=== PATIENT | female | born 1950 | race Caucasian/White ===

== ENCOUNTER 2016-12-19 05:51 | Inpatient (IN) ==
[2016-12-19] MEDS ORDERED: Ipratropium/Albuterol Neb 3 ML IH ONE ×2 (06:00→06:41)
--- NOTE | 2016-12-19 06:04 | Emergency Department Note ---
Disposition Clinical Impression: COPD exacerbation, Hypoxia, Elevated troponin Disposition: Still a Patient Condition: Good Referrals: NO,PCP [Primary Care Provider] - Forms: ED Satisfaction Letter SOB HPI - General Chief Complaint: ED Shortness of Breath/Dyspnea Stated Complaint: edwina Time Seen by Provider: 12/19/16 05:56 Source: patient Limitations: no limitations Nursing Notes Reviewed: Yes Vital Signs Reviewed: Yes - History of Present Illness 66-year-old female with a history of rheumatoid arthritis on Humira presents the emergency department with a chief complaint of shortness of breath. She had some shortness of breath last night but it worsened overnight. She is a long-time smoker but never been diagnosed with COPD formally. She has had episodes like this in the past but never as bad. Denies history of DVT/PE. Denies lower extremity swelling or calf pain. Denies recent illness. No fevers or chills. Denies any chest pain but complains her chest feels tight from her breathing. No productive sputum. No lightheadedness or syncope. No numbness or weakness in her extremities. - Related Data Home Medications Medication Instructions Recorded Confirmed Adalimumab [Humira] 40 mg SQ Q2W 08/21/16 10/02/16 Atenolol [Tenormin] 50 mg PO BID 08/21/16 10/02/16 Cholecalciferol (D-3) [Vitamin D] 2,000 unit PO DAILY 08/21/16 10/02/16 CloNIDine HCl [Kapvay] 0.1 mg PO BID 08/21/16 10/02/16 Lisinopril [Zestril] 20 mg PO BID 08/21/16 10/02/16 Metformin [Glucophage] 500 mg PO 0800 08/21/16 10/02/16 [place]-3 Fatty Acids/Fish Oil [Fish 1 each PO DAILY 08/21/16 10/02/[address] 1,000 mg Softgel] Triamterene/HCTZ 37.5/25mg 0.5 tab PO DAILY 08/21/16 10/02/16 [Dyazide] Previous Rx's Medication Instructions Recorded Folic Acid 1 mg PO DAILY #90 tablet 08/22/16 Azithromycin [Azithromycin 6-Tab 250 mg PO PER PKG DI #6 tab 10/02/16 Pack] Ferrous Sulfate [Iron] 325 mg PO BID #60 tablet 10/02/16 Allergies Allergy/AdvReac Type Severity Reaction Status Date / Time Penicillins Allergy Rash Verified 08/21/16 11:18 All systems ED: reviewed and negative except as stated. Constitutional: Denies: fever Cardiovascular: Reports: dyspnea on exertion. Denies: chest pain Respiratory: Reports: cough, dyspnea Gastrointestinal: Denies: abdominal pain, nausea, vomiting Musculoskeletal: Denies: back pain, neck pain Neurological: Denies: headache, weakness, numbness Past Medical History - Past Medical History Medical history: Reports: diabetes, hypertension, other - Social History Smoking Status: Current every day smoker Smokeless Tobacco Status: No Alcohol use: Reports: none Drug use: Reports: none Physical Exam General: She is sitting up in bed with some respiratory distress, talking in short sentences Cardiovascular: Regular rhythm but tachycardic S1, S2. No murmurs, rubs or gallops. Respiratory: Diminished breath sounds bilaterally with scant expiratory wheezing. Moderate respiratory distress breathing around 30 times a minute Abdomen: Soft, nontender. No guarding, rebound or rigidity. Eyes: conjunctiva clear HENT: Normocephalic, no signs of head injury. No oral mucosal lesions. Moist mucous membranes Neuro: Stands and ambulates independently. No facial asymmetry. Musculoskeletal: There is no redness, swelling, edema, tenderness, asymmetry, pain along the venous system or any other sign of DVT. Skin: No lesions. No diaphoresis. Normal turgor. Normal color Psych: Appropriate - General Limitations: no limitations General appearance: alert, in no apparent distress Course Course Narrative: Presents to the emergency department with new onset dyspnea. She has had these episodes in the past but never this bad. She was initially hypoxic but quickly responded to nasal cannula. She is very anxious and has air hunger. We brought the BiPAP and the patient would not tolerate it. Her oxygen saturation is maintaining without it. She was immediately given multiple breathing treatments we did give a small 0.5 mg dose of Ativan due to her significant anxiety. She is maintaining her oxygenation at this time. She is awake and alert. - Reevaluation(s) Reevaluation #1: After breathing treatments and Ativan patient much more relaxed, oxygenation stable, she is now talking in full sentences. Her EKG did so some ST depression and she has a mildly elevated troponin 0.08. She is having no chest pain or pressure. I assume this is troponin leak from her tachycardia. Patient being signed out to Dr. Taylor, pending the results of the rest of her labs and chest x-ray. Patient will likely be admitted for COPD exacerbation and elevated troponin Vital Signs Temperature 97.6 F 12/19/16 05:53 Pulse Rate 134 12/19/16 05:53 Respiratory Rate 24 12/19/16 05:53 Blood Pressure 173/136 12/19/16 05:53 O2 Sat by Pulse Oximetry 92 L 12/19/16 05:53 Temperature 97.6 F 12/19/16 05:53 Pulse Rate 123 12/19/16 06:14 Respiratory Rate 36 12/19/16 06:14 Blood Pressure 144/132 12/19/16 06:14 O2 Sat by Pulse Oximetry 89 L 12/19/16 06:14 Oxygen Delivery Oxygen Delivery Nasal Cannula Shortness of Breath/Dyspnea - Lab Data Result diagrams: 12/19/16 06:08 12/19/16 06:08 Lab Results 12/19/16 12/19/16 12/19/16 Range/Units 06:08 06:08 06:08 WBC 17.4 H (4.3-11.1) K/mcL RBC 3.15 L (3.82-4.97) M/mcL Hgb 9.2 L (11.5-15.4) g/dL Hct 30.6 L (35.3-44.9) % MCV 97.1 (83.0-100.0) fL MCH 29.2 (28.0-33.3) pg MCHC 30.1 L (31.6-35.5) g/dL RDW 16.8 H (11.5-14.5) % Plt Count 410 H (140-400) K/mcL MPV 9.7 (9.4-12.4) fL Immature Gran % 0.6 (0-4) % Seg Neutrophils % 59.4 % Lymphocytes % 33.0 % Monocytes % 4.1 % Eosinophils % 2.6 % Basophils % 0.3 % Neutrophils # 10.3 H (1.6-8.9) K/mcL Lymphocytes # 5.7 H (0.6-4.6) K/mcL Monocytes # 0.7 (0.0-1.3) K/mcL Eosinophils # 0.5 (0.0-0.6) K/mcL Basophils # 0.1 (0.0-0.2) K/mcL Sodium 134 L (136-145) mEq/L Potassium 5.2 H (3.5-4.5) mEq/L Chloride 105 (98-109) mEq/L Carbon Dioxide 17 L (19-29) mEq/L BUN 38 H (7-20) mg/dL Creatinine 2.01 H (0.57-1.11) mg/dL Est GFR ( Amer) 30 L (> 60) Est GFR (Non-Af Amer) 25 L (> 60) BUN/Creatinine Ratio 19 (6-26) Glucose 297 H (70-99) mg/dL Calculated Osmolality 298 (280-300) Calcium 9.7 (8.6-10.8) mg/dL Troponin I 0.08 H* (0-0.03) ng/mL B-Natriuretic Peptide (0-100) pg/mL 12/19/16 Range/Units 06:08 WBC (4.3-11.1) K/mcL RBC (3.82-4.97) M/mcL Hgb (11.5-15.4) g/dL Hct (35.3-44.9) % MCV (83.0-100.0) fL MCH (28.0-33.3) pg MCHC (31.6-35.5) g/dL RDW (11.5-14.5) % Plt Count (140-400) K/mcL MPV (9.4-12.4) fL Immature Gran % (0-4) % Seg Neutrophils % % Lymphocytes % % Monocytes % % Eosinophils % % Basophils % % Neutrophils # (1.6-8.9) K/mcL Lymphocytes # (0.6-4.6) K/mcL Monocytes # (0.0-1.3) K/mcL Eosinophils # (0.0-0.6) K/mcL Basophils # (0.0-0.2) K/mcL Sodium (136-145) mEq/L Potassium (3.5-4.5) mEq/L Chloride (98-109) mEq/L Carbon Dioxide (19-29) mEq/L BUN (7-20) mg/dL Creatinine (0.57-1.11) mg/dL Est GFR ( Amer) (> 60) Est GFR (Non-Af Amer) (> 60) BUN/Creatinine Ratio (6-26) Glucose (70-99) mg/dL Calculated Osmolality (280-300) Calcium (8.6-10.8) mg/dL Troponin I (0-0.03) ng/mL B-Natriuretic Peptide 2482 H (0-100) pg/mL - EKG Data EKG results narrative: EKG shows sinus tachycardia with a rate of 128 bpm. There are some ST depressions in lead V5 and V6. AR, QRS, QT within normal limits. Normal axis. Normal R-wave progression. Previous EKG shows similar wave morphology without as exaggerated ST changes in V5 and V6 Attestation Statement - Attestation Attestation: I, Surinder Zepeda MD, personally performed a history and physical exam of the patient and discussed their management with the resident. I reviewed the resident's note and agree with the documented findings, medical decision making , and plan of care. 66-year-old female presents to the emergency department with a complaint of increasing shortness of breath which started last evening and got much worse during the night. There has been some increased cough with some clear sputum production. No fever. No chest pain. Patient is a smoker and continues to smoke. She is not on home oxygen and does not use nebulizers at home. On examination patient is a well-developed elderly female in mild to moderate respiratory distress. She is alert and oriented 3. There is no cyanosis or diaphoresis. Breath sounds are markedly decreased bilaterally with a few scattered expiratory wheezes. Heart tachycardic and regular. Abdomen is soft and nontender with normal bowel sounds. Labs reviewed. Troponin 0.08. BNP 2482. WBC 17.4. EKG shows a sinus tachycardia with a heart rate of [address] segment depression. At shift change and patient is being signed out to the oncoming dayshift team, Dr. Looney and Dr. John.
[2016-12-19 06:18] LABS: Basophils # 0.1 K/mcL (0.0-0.2); Basophils % 0.3 %; Eosinophils # 0.5 K/mcL (0.0-0.6); Eosinophils % 2.6 %; Hematocrit 30.6 % (35.3-44.9); Hemoglobin 9.2 g/dL (11.5-15.4); Immature Granulocytes % 0.6 % (0-4); Lymphocytes # 5.7 K/mcL (0.6-4.6); Mean Corpuscular HGB Conc 30.1 g/dL (31.6-35.5); Mean Corpuscular Hemoglobin 29.2 pg (28.0-33.3); Mean Corpuscular Volume 97.1 fL (83.0-100.0); Mean Platelet Volume 9.7 fL (9.4-12.4); Monocytes # 0.7 K/mcL (0.0-1.3); Monocytes % 4.1 %; Neutrophils # 10.3 K/mcL (1.6-8.9); Platelet Count 410 K/mcL (140-400); Red Blood Count 3.15 M/mcL (3.82-4.97); Red Cell Distribution Width 16.8 % (11.5-14.5); Segmented Neutrophils % 59.4 %
[2016-12-19] MEDS ORDERED: *HR* LORazepam 2 MG/ML VIAL IVP ONE (06:18)
[2016-12-19 06:32] LABS: Calcium 9.7 mg/dL (8.6-10.8); Potassium 5.2 mEq/L (3.5-4.5)
[2016-12-19] MEDS ORDERED: *HR* Heparin 5,000 UNIT/ML VIAL SQ SCH (07:00)
--- NOTE | 2016-12-19 07:41 | Emergency Department Note ---
Disposition Clinical Impression: Hypoxia, Elevated troponin, Pulmonary vascular congestion, Elevated serum creatinine Disposition: Admitted As Inpatient Condition: Fair SOB HPI - General Chief Complaint: ED Shortness of Breath/Dyspnea Stated Complaint: edwina Time Seen by Provider: 12/19/16 05:56 Source: patient Limitations: no limitations Nursing Notes Reviewed: Yes Vital Signs Reviewed: Yes - Related Data Home Medications Medication Instructions Recorded Confirmed Adalimumab [Humira] 40 mg SQ Q2W 08/21/16 10/02/16 Atenolol [Tenormin] 50 mg PO BID 08/21/16 10/02/16 Cholecalciferol (D-3) [Vitamin D] 2,000 unit PO DAILY 08/21/16 10/02/16 CloNIDine HCl [Kapvay] 0.1 mg PO BID 08/21/16 10/02/16 Lisinopril [Zestril] 20 mg PO BID 08/21/16 10/02/16 Metformin [Glucophage] 500 mg PO 0800 08/21/16 10/02/16 [place]-3 Fatty Acids/Fish Oil [Fish 1 each PO DAILY 08/21/16 10/02/[address] 1,000 mg Softgel] Triamterene/HCTZ 37.5/25mg 0.5 tab PO DAILY 08/21/16 10/02/16 [Dyazide] Previous Rx's Medication Instructions Recorded Folic Acid 1 mg PO DAILY #90 tablet 08/22/16 Azithromycin [Azithromycin 6-Tab 250 mg PO PER PKG DI #6 tab 10/02/16 Pack] Ferrous Sulfate [Iron] 325 mg PO BID #60 tablet 10/02/16 Allergies Allergy/AdvReac Type Severity Reaction Status Date / Time Penicillins Allergy Rash Verified 08/21/16 11:18 Constitutional: Denies: fever Cardiovascular: Reports: dyspnea on exertion. Denies: chest pain Respiratory: Reports: cough, dyspnea Gastrointestinal: Denies: abdominal pain, nausea, vomiting Musculoskeletal: Denies: back pain, neck pain Neurological: Denies: headache, weakness, numbness Past Medical History - Past Medical History Medical history: Reports: diabetes, hypertension, other - Social History Smoking Status: Current every day smoker Smokeless Tobacco Status: No Alcohol use: Reports: none Drug use: Reports: none Physical Exam - General Limitations: no limitations General appearance: alert, in no apparent distress Course Course Narrative: Introduced myself to the patient. Received signout from shift supervisor melting resident. Reports shortness of breath that woke her from sleep. No formal diagnosis of COPD however she does have a long-standing history of cigarette smoking. She is tachycardic here. She was initially hypoxic on presentation. Her EKG shows sinus tach with ST depressions in lead V5 and V6. Chest x-ray looks like she has some vascular congestion. BNP is 2400. This case was discussed with the hospitalist and they requested d-dimer. Patient to be admitted for further management. Vital Signs Temperature 97.6 F 12/19/16 05:53 Pulse Rate 134 12/19/16 05:53 Respiratory Rate 24 12/19/16 05:53 Blood Pressure 173/136 12/19/16 05:53 O2 Sat by Pulse Oximetry 92 L 12/19/16 05:53 Temperature 97.6 F 12/19/16 05:53 Pulse Rate 109 12/19/16 07:02 Respiratory Rate 26 12/19/16 07:02 Blood Pressure 157/106 12/19/16 07:02 O2 Sat by Pulse Oximetry 91 L 12/19/16 07:10 Oxygen Delivery Oxygen Delivery Aerosol Mask Shortness of Breath/Dyspnea - MDM Narrative Medical decision making narrative: 66-year-old female presents to the ER with a chief complaint of shortness of breath. She is tachycardic and hypoxic on presentation. She is satting well now on supplemental O2 via nasal cannula. Her chest x-ray looks like she has some interstitial edema. Her EKG is sinus tach with some depression in the lateral leads. Troponin is 0.08. Discussed this case with the hospitalist. Requests to add on a d-dimer. We will admit to the hospital for further management. I examined this patient and my medical decision-making was reviewed with the CHARGING MANIPULATOR/PA/Advanced Practice Nurse/Resident Physician. I agree with the documented findings, disposition and treatment plan as described except to the extent set forth below. Patient was signed out from the evening ER doc Dr. Zepeda, was seen by Dr. Correa and myself today, agree with his evaluation management plan, supervised patient study. There is waiting for admission to the hospitalist service which with the hospitalist service and patient she agrees to be admitted. Impression is acute exacerbation of COPD, and CHF. With elevated troponin. - Lab Data Lab results reviewed: Yes I reviewed the patient's lab results. Result diagrams: 12/19/16 06:08 12/19/16 06:08 Lab Results 12/19/16 12/19/16 12/19/16 Range/Units 06:08 06:08 06:08 WBC 17.4 H (4.3-11.1) K/mcL RBC 3.15 L (3.82-4.97) M/mcL Hgb 9.2 L (11.5-15.4) g/dL Hct 30.6 L (35.3-44.9) % MCV 97.1 (83.0-100.0) fL MCH 29.2 (28.0-33.3) pg MCHC 30.1 L (31.6-35.5) g/dL RDW 16.8 H (11.5-14.5) % Plt Count 410 H (140-400) K/mcL MPV 9.7 (9.4-12.4) fL Immature Gran % 0.6 (0-4) % Seg Neutrophils % 59.4 % Lymphocytes % 33.0 % Monocytes % 4.1 % Eosinophils % 2.6 % Basophils % 0.3 % Neutrophils # 10.3 H (1.6-8.9) K/mcL Lymphocytes # 5.7 H (0.6-4.6) K/mcL Monocytes # 0.7 (0.0-1.3) K/mcL Eosinophils # 0.5 (0.0-0.6) K/mcL Basophils # 0.1 (0.0-0.2) K/mcL Sodium 134 L (136-145) mEq/L Potassium 5.2 H (3.5-4.5) mEq/L Chloride 105 (98-109) mEq/L Carbon Dioxide 17 L (19-29) mEq/L BUN 38 H (7-20) mg/dL Creatinine 2.01 H (0.57-1.11) mg/dL Est GFR ( Amer) 30 L (> 60) Est GFR (Non-Af Amer) 25 L (> 60) BUN/Creatinine Ratio 19 (6-26) Glucose 297 H (70-99) mg/dL Calculated Osmolality 298 (280-300) Calcium 9.7 (8.6-10.8) mg/dL Troponin I 0.08 H* (0-0.03) ng/mL B-Natriuretic Peptide (0-100) pg/mL 12/19/16 Range/Units 06:08 WBC (4.3-11.1) K/mcL RBC (3.82-4.97) M/mcL Hgb (11.5-15.4) g/dL Hct (35.3-44.9) % MCV (83.0-100.0) fL MCH (28.0-33.3) pg MCHC (31.6-35.5) g/dL RDW (11.5-14.5) % Plt Count (140-400) K/mcL MPV (9.4-12.4) fL Immature Gran % (0-4) % Seg Neutrophils % % Lymphocytes % % Monocytes % % Eosinophils % % Basophils % % Neutrophils # (1.6-8.9) K/mcL Lymphocytes # (0.6-4.6) K/mcL Monocytes # (0.0-1.3) K/mcL Eosinophils # (0.0-0.6) K/mcL Basophils # (0.0-0.2) K/mcL Sodium (136-145) mEq/L Potassium (3.5-4.5) mEq/L Chloride (98-109) mEq/L Carbon Dioxide (19-29) mEq/L BUN (7-20) mg/dL Creatinine (0.57-1.11) mg/dL Est GFR ( Amer) (> 60) Est GFR (Non-Af Amer) (> 60) BUN/Creatinine Ratio (6-26) Glucose (70-99) mg/dL Calculated Osmolality (280-300) Calcium (8.6-10.8) mg/dL Troponin I (0-0.03) ng/mL B-Natriuretic Peptide 2482 H (0-100) pg/mL - Radiology Data Radiology results reviewed: Yes I reviewed the patient's radiology results. Chest X-Ray 12/19/16 06:01 IMPRESSION: 1. Diffuse interstitial opacities bilaterally most likely representing edema. Interstitial pneumonia could appear similar. 2. At least trace bilateral effusions. 3. Bibasilar atelectasis. D/ / Neil Lobo MD / Neil Lobo MD Interpreting Provider: Neil Lobo MD
[2016-12-19] MEDS ORDERED: *HR* Morphine 2 MG/ML SYRINGE IVP PRN (08:15)
[2016-12-19] MEDS ORDERED: Naloxone 0.4 MG/ML INJ IVP PRN (08:15)
[2016-12-19] MEDS ORDERED: Adalimumab [Humira] 40 MG SQ SCH (08:30)
[2016-12-19] MEDS ORDERED: Furosemide 40 MG/4 ML VIAL IVP ONE (08:32)
--- NOTE | 2016-12-19 08:37 | Internal Med History&Physical ---
Date of Encounter: 12/19/16 Time of Encounter: 08:26 Assessment and Plan (1) COPD exacerbation Current visit: Yes Status: Acute COPD exacerbation: COPD exacarbation : Precipitated likely secondary to multifactorial etiology. she has ongoing respiratory symptoms and noted that possible underlying infection. plan - Admit as inpatient. - Blood culture - IV levofloxacin 750 mg q24 h - IV Solumedrol 40 mg q8h. - BDAs. - IN oxygen 2 L - Keep SpO2 around 90% - will check troponin (2) Elevated troponin Current visit: Yes Status: Acute Elevated troponin: Etiology: Multifactorial: Elevated creatinine, persistent tachycardia, stress secondary to COPD exacerbation Plan: -We will continue serial troponin. -Patient has a EKG changes. -We will get cardiology on the board for further evaluation. -I have spoken to cardiology (3) Elevated serum creatinine Current visit: Yes Status: Acute Likely secondary to dehydration. Will give IV fluids for now. (4) Hypoxia Current visit: Yes Status: Acute Likely secondary to COPD. (5) DVT prophylaxis Current visit: Yes Status: Acute Heparin Medical decision making: Patient is a [id number] risk of worsening respiratory failure in spite of being on appropriate treatment Internal Medicine - H&P: HPI Chief complaint: GEOFF Admitted From: Emergency Dept Plans for Post Hospital Care: Home History of present illness: PCP : Used to be Hilary Augustin. Brief PMH: RA on treatment with biologics from [facility]. Her most records are at the same facility. HTN, COPD, Smoker History of present illness: Patient was complaining of chest tightness along with cough and expectoration 2 weeks back. Patient was started on antibiotics and she felt better. Her symptoms started for this admission 12 hours back. Patient was complaining of shortness of breath, chest tightness, palpitations. Patient denies chest pain and she is able to lay down flat. Patient was at home when she tried home remedies overnight but it did not help and that is the reason she came to the emergency room. Course in the emergency room. Basic labs were done along with the exception of the chest which showed vascular congestion. EKG shows ST depression. Troponin is elevated. Along with that creatinine is elevated too. Reason for admission: Possible COPD exacerbation along with dehydration which is responsible for cardiac stress: Non-ST elevation myocardial infarction. I have examined this patient in the emergency room. Has spoke to cardiology for further evaluation. Family history: Noncontributory Past Med Surg Social Fam HX - Past Medical History Medical history: diabetes, hypertension, other - Social History Smoking Status: Current every day smoker Smokeless Tobacco Status: No Alcohol use: none Drug use: none Internal Medicine - H&P: Meds Adalimumab [Humira] 40 mg SQ Q2W 08/21/16 [History] Atenolol [Tenormin] 50 mg PO BID 08/21/16 [History] Cholecalciferol (D-3) [Vitamin D] 2,000 unit PO DAILY 08/21/16 [History] CloNIDine HCl [Kapvay] 0.1 mg PO BID 08/21/16 [History] Lisinopril [Zestril] 20 mg PO BID 08/21/16 [History] [place]-3 Fatty Acids/Fish Oil [Fish Oil Dr 1,000 mg Softgel] 1 each PO DAILY 11/05 [History] Triamterene/HCTZ 37.5/25mg [Dyazide] 0.5 tab PO DAILY 08/21/16 [History] Folic Acid 1 mg PO DAILY #90 tablet 08/22/16 [Rx] Ferrous Sulfate [Iron] 325 mg PO BID #60 tablet 10/02/16 [Rx] Allopurinol [Zyloprim 100 MG] 100 mg PO DAILY 12/19/16 [History] Amlodipine [Norvasc] 5 mg PO BID 12/19/16 [History] Metformin HCl [Metformin HCl ER] 500 mg PO DAILY 12/19/16 [History] Allergies Penicillins Allergy (Verified 08/21/16 11:18) Rash All Systems PM: A 10-system review of systems was performed and is negative for pertinent findings except as documented above in the HPI. - Constitutional Constitutional: no chills, no fever(s), no night sweats - EENT Eyes: no change in vision, no discharge, no pain, no photophobia Ears: no ear discharge, no ear pain, no tinnitus Nose, mouth and throat: no dysphagia, no nasal discharge, no neck pain, no sore throat - Cardiovascular Cardiovascular ROS IM: no chest pain, no diaphoresis, no dyspnea, no lightheadedness, no palpitations, no syncope - Respiratory Respiratory: cough, dyspnea, wheezing, no excessive phlegm production - Gastrointestinal Gastrointestinal: no abdominal pain, no diarrhea, no hematemesis, no hematochezia, no melena, no nausea, no vomiting - Genitourinary Genitourinary: no change in urinary stream, no dysuria, no flank pain, no hematuria - Musculoskeletal Musculoskeletal ROS IM: no numbness, no tingling - Integumentary Integumentary IM: no rash, no unusual bruising - Neurological Neurological ROS: no confusion, no convulsions, no focal weakness, no numbness, no tingling, no tremor(s) - Hematologic/Lymphatic Hematologic/Lymphatic: no easy bruising - Constitutional Vitals: Temp Pulse Resp BP Pulse Ox 97.6 F 108 18 138/93 98 12/19/16 05:53 12/19/16 08:00 12/19/16 08:00 12/19/16 08:00 12/19/16 08:00 General appearance: Present: A&O X 3, pleasant, no acute distress, answers questions appropriately - Head Head exam: Present: atraumatic, normocephalic - Eye Eye exam: Present: PERRL, conjuntiva pink, sclera anicteric Pupils: Present: PERRL - Neck Neck exam general surgery: Present: supple, trachea midline. Absent: lymphadenopathy - Respiratory Respiratory exam: Present: CTAB. Absent: accessory muscle use, rales, rhonchi, wheezes - Cardiovascular Cardiovascular exam: Present: RRR, +S1, +S2. Absent: diastolic murmur, gallop, rubs, systolic murmur - GI/Abdominal GI/Abdominal exam: Present: normal bowel sounds, soft, no peritoneal signs. Absent: distended, tenderness - Extremities Exam Extremities exam: Present: warm, radial pulses palpable and symetrical. Absent : calf tenderness, cyanotic, pedal edema - Neurological Exam Neurological exam: Present: CN II-XII intact, oriented X3, no focal deficits. Absent: pronater drift, facial droop, speech deficit - Skin Skin exam: Present: dry, intact Internal Med - H&P Results - Labs CBC & Chem 7: 12/19/16 06:08 12/19/16 06:08 Labs: Case discussed with the emergency room physician.
--- NOTE | 2016-12-19 08:41 | Cardiology Consult Note ---
Date of Encounter: 12/19/16 Time of Encounter: 08:35 Assessment and Plan (1) NSTEMI (non-ST elevated myocardial infarction) Current Visit: Yes Status: Acute Troponin 0.08. Also elevated in the setting of hypoxia, possible CHF, COPD exacerbation. New ischemic changes in the inferior lateral leads on EKG. Sinus tachycardia. Denies chest pain. Multiple risk factors including tobacco use, family history, HTN, HLD, DM type II, and RA. CXR suggest possible CHF. BNP 2430. Will give IV lasix. Check TTE. Trend troponin. LHC indications, risks, benefits, and alternatives reviewed. She agrees to proceed. Plan for LHC once stable from respiratory standpoint. Asa, statin, and bb. Heparin gtt per ACS protocal. (2) COPD exacerbation Current Visit: Yes Status: Acute On nebulizer, breathing treatment, and levaquin. Smoking cessation. (3) Tobacco abuse Current Visit: Yes Status: Acute Smoking cessation. Discussion w patient/family: The assessment and plan as outlined above was discussed with the patient and/or family members who expressed understanding and agreement. All questions were answered. Thank you for involving us in the care of your patient. Please call with any questions. History of Present Illness Consult date: 12/19/16 Requesting physician: Myles Cruz Consult reason: NSTEMI Chief complaint: SOB History of present illness: Ms. Guadalupe is a 66 year old female who presents with increasing SOB yesterday. C/O upper respiratory infection 2 weeks ago for which she took antibiotic. She was feeling better until yesterday. She admits to chills and fatigue. C/o orthopnea. Denies weight gain or edema. Denies chest pain or palpitations. Her initial EKG showed ST depression. Troponin elevated at 0.08. BNP 2430. Cardiology consulted for NSTEMI. SOB improved with nebulizers and solu-medrol. Denies previous history of CAD or CHF. Past medical history significant for tobacco use, hypertension, HLD, DM type II, CKD stage II, and rheumatoid arthritis. Past Med Surg Social Fam HX - Past Medical History Medical history: diabetes, hyperlipidemia, hypertension, RA, renal disease, other - Social History Smoking Status: Current every day smoker Packs per day: 1 pk Smokeless Tobacco Status: No Alcohol use: none Drug use: none - Family History Sister Hx Family Cardiac Disorders: Yes (Reports history of heart disease) Medications and Allergies Adalimumab [Humira] 40 mg SQ Q2W 08/21/16 [History] Atenolol [Tenormin] 50 mg PO BID 08/21/16 [History] Cholecalciferol (D-3) [Vitamin D] 2,000 unit PO DAILY 08/21/16 [History] CloNIDine HCl [Kapvay] 0.1 mg PO BID 08/21/16 [History] Lisinopril [Zestril] 20 mg PO BID 08/21/16 [History] [place]-3 Fatty Acids/Fish Oil [Fish Oil Dr 1,000 mg Softgel] 1 each PO DAILY 11/05 [History] Triamterene/HCTZ 37.5/25mg [Dyazide] 0.5 tab PO DAILY 08/21/16 [History] Folic Acid 1 mg PO DAILY #90 tablet 08/22/16 [Rx] Ferrous Sulfate [Iron] 325 mg PO BID #60 tablet 10/02/16 [Rx] Allopurinol [Zyloprim 100 MG] 100 mg PO DAILY 12/19/16 [History] Amlodipine [Norvasc] 5 mg PO BID 12/19/16 [History] Metformin HCl [Metformin HCl ER] 500 mg PO DAILY 12/19/16 [History] Allergies Penicillins Allergy (Verified 08/21/16 11:18) Rash All Systems Review: A 10-system review of systems was performed and is negative for pertinent findings except as documented above in the HPI. Physical Examination Vital Signs, Last 4 Hours Pulse Resp BP Pulse Ox 12/19/16 08:00 108 18 138/93 98 General: Conversant, No Apparent Distress HEENT: Atraumatic, Normocephaly, Mucus Membranes Moist Neck: No JVD, Normal carotid pulses Cardiac: Reg Rate and Rhythm, Normal S1 and S2, Other (ST on telemetry) Lungs: Other (Respirations currently easy. Pt sitting straight up in bed. rhonci and wheezes scattered through out. ) Neuro: Alert and responsive, No focal deficits noted Abdomen: Soft, Non-Tender Skin: No rashes noted on visualized skin Musculoskeletal: No Chest Wall Tenderness Extremities: No Clubbing, No Cyanosis, No Edema, Normal Pulses Results 12/19/16 06:08 12/19/16 06:08 Chest X-Ray 12/19/16 06:01 IMPRESSION: 1. Diffuse interstitial opacities bilaterally most likely representing edema. Interstitial pneumonia could appear similar. 2. At least trace bilateral effusions. 3. Bibasilar atelectasis. D/ / Neil Lobo MD / Neil Lobo MD Interpreting Provider: Neil Lobo MD - Imaging and Cardiology Echo: pending - EKG Interpretation EKG results cardiology: personally reviewed (St with inferior lateral st depression.) Consult Discharge Plan - Plan Referrals: NO,PCP [Primary Care Provider] -
[2016-12-19] MEDS ORDERED: Levofloxacin 500 MG/100 ML 500 MG/100 ML BAG IVPB SCH (09:00)
[2016-12-19] MEDS ORDERED: *HR* Heparin 5,000 UNIT/ML VIAL IVP PRN (09:11)
[2016-12-19] MEDS ORDERED: *HR* Heparin 5,000 UNIT/ML VIAL IVP ONE (09:11)
[2016-12-19 09:47] LABS: INR 1.2; Prothrombin Time 13.4 Seconds (9.4-12.1)
[2016-12-19 09:48] LABS: Activated Partial Thrombo Time 29.9 Seconds (26.0-36.0)
[2016-12-19 09:53] LABS: Hematocrit 27.7 % (35.3-44.9); Hemoglobin 8.6 g/dL (11.5-15.4); Mean Corpuscular Hemoglobin 29.6 pg (28.0-33.3); Mean Corpuscular Volume 95.2 fL (83.0-100.0); Mean Platelet Volume 9.9 fL (9.4-12.4); Platelet Count 350 K/mcL (140-400); Red Blood Count 2.91 M/mcL (3.82-4.97); Red Cell Distribution Width 16.6 % (11.5-14.5)
--- NOTE | 2016-12-19 10:06 | Electrocardiograph Report ---
[place] [id number] Test Date: 2016-12-19 Pat Name: Dhara Guadalupe Department: 104 Room: 2A Gender: F [employer]: : 1950 Requested By: Zenon Hubbard Order Number: [id number] Reading MD: Ene Germain Measurements Intervals Horatio Rate: 128 P: 73 ME: 174 QRS: 35 QRSD: 97 T: -13 QT: 314 QTc: 390 Interpretive Statements SINUS TACHYCARDIA ST DEVIATION AND MODERATE T-WAVE ABNORMALITY, CONSIDER INFERIOR ISCHEMIA BASELINE WANDER AND ARTIFACT Electronically Signed On 12-19-2016 10:04:21 EST by Ene Germain
[2016-12-19] MEDS: Levofloxacin 750 MG/150 ML 750 MG/150 ML BAG IVPB SCH (10:14)
[2016-12-19] MEDS: Lisinopril 20 MG TABLET PO SCH ×2 (10:27→21:22)
[2016-12-19] MEDS: cloNIDine HCl 0.1 MG TABLET PO SCH ×2 (10:27→21:23)
[2016-12-19] MEDS: Folic Acid 1 MG TABLET PO SCH (10:28)
[2016-12-19] MEDS: Cholecalciferol (D-3) 1,000 UNIT TABLET PO SCH (10:28)
[2016-12-19] MEDS: amLODIPine 5 MG TABLET PO SCH ×2 (10:28→21:23)
[2016-12-19] MEDS: Aspirin 81 MG TAB.CHEW PO SCH (10:28)
[2016-12-19] MEDS: 0.9 % Sodium Chloride 1,000 ML IVC SCH (10:29)
[2016-12-19] MEDS: OMEGA 3 FATTY ACIDS PO SCH (10:36)
[2016-12-19] MEDS: Heparin 25,000 UNIT/500 ML D5W 25,000 UNIT/500 ML MLS IVC SCH (11:14)
[2016-12-19] MEDS: Ipratropium/Albuterol Neb 3 ML IH SCH ×5 (11:19→23:07)
[2016-12-19 12:11] LABS: Bilirubin,Urine Negative (Negative); Blood,Urine Negative (Negative); Clarity,Urine Clear (Clear); Color,Urine Yellow (Yellow); Glucose,Urine (UA) Normal (Normal); Ketones,Urine Negative (Negative); Leukocyte Esterase,Urine Negative (Negative); Nitrite,Urine Negative (Negative); Protein,Urine Negative (Neg-Trace); Urobilinogen,Urine Normal (Normal)
[2016-12-19] MEDS: MethylPREDNISolone 40 MG/ML VIAL IVP SCH (16:25)
[2016-12-19] MEDS: *HR* Heparin 5,000 UNIT/ML VIAL IVP PRN (18:20)
[2016-12-20] MEDS: MethylPREDNISolone 40 MG/ML VIAL IVP SCH ×3 (00:14→17:24)
[2016-12-20] MEDS: 0.9 % Sodium Chloride 1,000 ML IVC SCH (00:16)
[2016-12-20] MEDS: Ipratropium/Albuterol Neb 3 ML IH SCH ×7 (03:42→23:27)
[2016-12-20 07:06] LABS: Albumin 2.7 g/dL (3.5-5.0); Albumin/Globulin Ratio 0.6 (1.1-2.2); Bilirubin,Total 0.3 mg/dL (0.2-1.2); Calcium 9.3 mg/dL (8.6-10.8); Chol/HDL Ratio 3.5 (0-4.9); Globulin 4.5 g/dL (2.4-3.5); Magnesium 1.5 mg/dL (1.6-2.6); Potassium 4.5 mEq/L (3.5-4.5); Total Protein 7.2 g/dL (6.0-8.3)
[2016-12-20 07:30] LABS: Basophils % 0.2 %; Hematocrit 24.4 % (35.3-44.9); Hemoglobin 7.5 g/dL (11.5-15.4); Immature Granulocytes % 0.3 % (0-4); Lymphocytes # 1.2 K/mcL (0.6-4.6); Lymphocytes % 17.9 %; Mean Corpuscular HGB Conc 30.7 g/dL (31.6-35.5); Mean Corpuscular Volume 94.2 fL (83.0-100.0); Mean Platelet Volume 10.2 fL (9.4-12.4); Monocytes % 0.6 %; Neutrophils # 5.2 K/mcL (1.6-8.9); Platelet Count 336 K/mcL (140-400); Red Blood Count 2.59 M/mcL (3.82-4.97); Red Cell Distribution Width 16.5 % (11.5-14.5)
[2016-12-20] MEDS: Folic Acid 1 MG TABLET PO SCH (08:39)
[2016-12-20] MEDS: amLODIPine 5 MG TABLET PO SCH (08:39)
[2016-12-20] MEDS: Aspirin 81 MG TAB.CHEW PO SCH (08:39)
[2016-12-20] MEDS: Cholecalciferol (D-3) 1,000 UNIT TABLET PO SCH (08:39)
[2016-12-20] MEDS: Lisinopril 20 MG TABLET PO SCH ×2 (08:39→22:01)
[2016-12-20] MEDS: OMEGA 3 FATTY ACIDS PO SCH (08:40)
[2016-12-20] MEDS: cloNIDine HCl 0.1 MG TABLET PO SCH ×2 (08:40→22:01)
[2016-12-20] MEDS: *HR* Heparin 5,000 UNIT/ML VIAL IVP PRN (08:50)
--- NOTE | 2016-12-20 08:57 | Internal Med Progress Note ---
<DavidNeil santiago - Last Filed: 12/20/16 08:50> Date of Encounter: 12/20/16 Time of Encounter: 08:51 - Assessment and plan (1) Acute hypoxemic respiratory failure Current Visit: Yes Status: Acute Assessment and plan: Secondary to COPD exacerbation. Acute exacerbation of congestive heart failure , pulmonary hypertension, pulmonary embolism also concern. Patient initially required 15 L nonrebreather but is now maintaining oxygen saturations above 88% with 2 L nasal cannula. Will wean oxygen as tolerated. (2) Heart failure with reduced ejection fraction Current Visit: Yes Status: Acute Assessment and plan: Echo shows EF of 25-30%. Ischemic versus nonischemic. This is apparently a new diagnosis. Cardiology is following. Plan for left heart catheter this hospitalization. Fluids up and stopped, we will diuresis. Qualifiers: Heart failure chronicity: unspecified heart failure chronicity Qualified Code(s): I50.20 - Unspecified systolic (congestive) heart failure (3) Pulmonary hypertension Current Visit: Yes Status: Acute Assessment and plan: Moderate. RVSP is 50 on echo. Differential is broad in this patient including lung disease, left heart disease, chronic venous thromboembolism, as well as PAH. We will treat lung disease, plan for VQ scan today. Patient also had left heart catheter point during this stay. (4) COPD exacerbation Current Visit: Yes Status: Acute Assessment and plan: Possible causes include infection, and NSTEMI. Patient's oxygenation is improved. Continue steroids, will wean as tolerated. Continue IV antibiotics, continue bronchodilators. (5) NSTEMI (non-ST elevated myocardial infarction) Current Visit: Yes Status: Acute Assessment and plan: Possibly related to demand ischemia in the setting of COPD exacerbation. Troponin on presentation was 0.08, has peaked at 0.19 and most recently was 0.17. Cardiology is evaluating the patient and are planning for left heart catheterization once the patient is more medically stable. (6) Anemia Current Visit: Yes Status: Acute Assessment and plan: Acute blood loss versus anemia of chronic kidney disease and iron deficiency. Possible dilutional component as well. Patient denies any evidence of active bleeding. We will check Hemoccult stool. Repeat CBC this afternoon. Qualifiers: Anemia type: unspecified type Qualified Code(s): D64.9 - Anemia, unspecified (7) CKD (chronic kidney disease), stage IV Current Visit: Yes Status: Acute Assessment and plan: Kidney function appears stable. Good urine output. Continue monitor creatinine. Diuresis as above. (8) DVT prophylaxis Current Visit: Yes Status: Acute Assessment and plan: Currently on heparin drip. - Subjective Interval history: Patient seen and examined at bedside. Patient states she feels better today. Her shortness of breath is improved. She denies any chest pain, cough, lower extremity edema, hematemesis, hematochezia, melena, hemoptysis. - Constitutional Vitals: Temp Pulse Resp BP Pulse Ox 97.5 F L 96 16 139/82 92 L 12/20/16 04:18 12/20/16 04:18 12/20/16 08:07 12/20/16 04:18 12/20/16 08:07 General appearance: Present: A&O X 3, pleasant, no acute distress, answers questions appropriately - Respiratory Respiratory exam: Present: rhonchi (Faint in the left base). Absent: rales, respiratory distress, wheezes, tachypnea - Cardiovascular Cardiovascular exam: Present: RRR. Absent: gallop, rubs, systolic murmur - GI/Abdominal GI/Abdominal exam: Present: normal bowel sounds, soft. Absent: distended, tenderness - Extremities Exam Extremities exam: Absent: pedal edema, tenderness - Neurological Exam Neurological exam: Present: alert, CN II-XII intact, oriented X3, no focal deficits Internal Medicine: Result - Labs CBC & Chem 7: 12/20/16 05:59 12/20/16 05:59 Labs: Short CBC 12/19/16 12/20/16 Range/Units 09:25 05:59 WBC 11.9 H 6.5 (4.3-11.1) K/mcL Hgb 8.6 L 7.5 L (11.5-15.4) g/dL Hct 27.7 L 24.4 L (35.3-44.9) % Plt Count 350 336 (140-400) K/mcL Neutrophils # 5.2 (1.6-8.9) K/mcL BMP 12/20/16 05:59 Sodium 139 Potassium 4.5 Chloride 108 Carbon Dioxide 19 BUN 45 H Creatinine 2.03 H Glucose 159 H Calcium 9.3 Cardiac Enzymes 12/19/16 12/19/16 12/19/16 Range/Units 09:01 15:24 21:17 Troponin I 0.14 H* 0.19 H* 0.17 H* (0-0.03) ng/mL Liver Function 12/20/16 Range/Units 05:59 Total Bilirubin 0.3 (0.2-1.2) mg/dL AST 12 (5-34) Units/L ALT 11 (0-55) Units/L Alkaline Phosphatase 85 (38-126) Units/L Albumin 2.7 L (3.5-5.0) g/dL Urine 12/19/16 Range/Units 11:50 Urine Color Yellow (Yellow) Urine Clarity Clear (Clear) Urine pH 6.0 (5.0-8.0) pH Units Ur Specific [place] 1.010 (1.010-1.025) Urine Protein Negative (Neg-Trace) mg/dL Urine Glucose (UA) Normal (Normal) mg/dL - ABG Interpretation ABG results: PT/INR, D-dimer PT 13.4 Seconds (9.4-12.1) H 12/19/16 09:25 D-Dimer 1891 ng/mLFEU (0-500) H 12/19/16 06:08 Consult Discharge Plan - Plan Referrals: Mame Curtis, COSTING ANALYST [Non-Partnered Physician] - 12/27/16 11:10 am (Please follow up as schedule...) <Too Qiu H - Last Filed: 12/20/16 10:23> Date of Encounter: 12/20/16 - Constitutional Vitals: Temp Pulse Resp BP Pulse Ox 97.5 F L 96 16 139/82 92 L 12/20/16 04:18 12/20/16 04:18 12/20/16 08:07 12/20/16 04:18 12/20/16 08:07 Internal Medicine: Result - Labs CBC & Chem 7: 12/20/16 05:59 12/20/16 05:59 Labs: Short CBC 12/20/16 Range/Units 05:59 WBC 6.5 (4.3-11.1) K/mcL Hgb 7.5 L (11.5-15.4) g/dL Hct 24.4 L (35.3-44.9) % Plt Count 336 (140-400) K/mcL Neutrophils # 5.2 (1.6-8.9) K/mcL BMP 12/20/16 05:59 Sodium 139 Potassium 4.5 Chloride 108 Carbon Dioxide 19 BUN 45 H Creatinine 2.03 H Glucose 159 H Calcium 9.3 Cardiac Enzymes 12/19/16 12/19/16 Range/Units 15:24 21:17 Troponin I 0.19 H* 0.17 H* (0-0.03) ng/mL Liver Function 12/20/16 Range/Units 05:59 Total Bilirubin 0.3 (0.2-1.2) mg/dL AST 12 (5-34) Units/L ALT 11 (0-55) Units/L Alkaline Phosphatase 85 (38-126) Units/L Albumin 2.7 L (3.5-5.0) g/dL Urine 12/19/16 Range/Units 11:50 Urine Color Yellow (Yellow) Urine Clarity Clear (Clear) Urine pH 6.0 (5.0-8.0) pH Units Ur Specific [place] 1.010 (1.010-1.025) Urine Protein Negative (Neg-Trace) mg/dL Urine Glucose (UA) Normal (Normal) mg/dL - ABG Interpretation ABG results: PT/INR, D-dimer PT 13.4 Seconds (9.4-12.1) H 12/19/16 09:25 D-Dimer 1891 ng/mLFEU (0-500) H 12/19/16 06:08 - Attending Attestation continue heparin drip until V/Q scan and cardiology evaluation . On solumedrol for acute hypoxic resp failure due to acute COPD exacerbation from possible acute bronchitis viral vs bacterial , bari acute systolic CHF exacerbation . continue lasix solumedrol , levaquin I examined this patient and my medical decision-making was reviewed with the PET TRAINING INSTRUCTOR/PA/Advanced Practice Nurse/Resident Physician. I agree with the documented findings, disposition and treatment plan as described except to the extent set forth below.
--- NOTE | 2016-12-20 09:08 | Invasive Diagnostic Lab ---
Echocardiogram Name: Dhara Guadalupe Date of Study: 12/20/2016 Date: 1950 Ht: 61.0 in Medical Record#: [id number] Age: 66 Wt: 104.0 lb Gender: Female BSA: 1.43 Order #: [id number] Location: [facility] Room #: 2A35 Reading Physician: Neil Krishnamurthy MD, [facility] [employer] Machine Operator: Jeniffer Son RVT Ordering Physician: Myles Cruz MD Primary Physician: Mame Curtis CNP Indications: Chest pain Impressions: Mildly dilated left ventricle. Severe left ventricular systolic dysfunction, LVEF 25-30%. There is global hypokinesis with regional variations. Normal right ventricular size and function. Mildly thickened/calcified mitral valve leaflets. There is restricted motion of the posterior mitral valve leaflet. Moderate mitral regurgitation. Moderate pulmonary hypertension. Estimated RVSP= 50 mmHg. Left Ventricular Wall Motion: Rest Echo Findings The apex, apical inferior, mid inferior, basal inferior, apical anterior, mid anterior, basal anterior, apical septal, mid inferior septal, basal inferior septal, apical lateral, mid anterior lateral, basal anterior lateral, mid anterior septal, mid inferior lateral, basal anterior septal and basal inferior lateral zambrano were hypokinetic. Findings: Study Quality * Technically adequate exam. ECG Findings * Sinus tachycardia. Left Ventricle * Mildly dilated left ventricle. * Severe left ventricular systolic dysfunction, LVEF 25-30%. There is global hypokinesis with regional variations. * Normal LV wall thickness. * Indeterminate diastolic function. Right Ventricle * Normal right ventricular size and function. Left Atrium * Normal left atrial size. Right Atrium * Normal right atrial size. Interatrial Septum * Lipomatous interatrial septum. Aorta * Normally sized aortic root. Pericardium * There is no pericardial effusion present. IVC * The IVC is not dilated. Mitral Valve * Mildly thickened/calcified mitral valve leaflets. There is restricted motion of the posterior mitral valve leaflet. * No mitral stenosis. * Moderate mitral regurgitation. Aortic Valve * No aortic stenosis. * No aortic regurgitation. * Aortic valve not well visualized. Appears trileaflet with mild sclerosis. Tricuspid Valve * Normal tricuspid valve structure. * No tricuspid stenosis. * Trace tricuspid regurgitation. * Moderate pulmonary hypertension. Estimated RVSP= 50 mmHg. Pulmonic Valve * Pulmonic valve not well visualized. * No pulmonic stenosis. * No pulmonic regurgitation. History Hypertension Diabetes Hypercholesteremia History of Smoking Years 35 Packs 1 Family History of CAD Myocardial Infarction Measurements: BP: 139/ 82 2D Normal Values RVIDd: 2.70 cm IVSd: 1.00 cm 0.6 - 1.0 cm LVIDd: 5.60 cm 3.7 - 5.6 cm LVPWd: 1.00 cm 0.6 - 1.1 cm LVIDs: 4.50 cm 1.5 - 3.6 cm AO: 3.10 cm < 4.0 cm LA volume: 34 Tricuspid Valve TV Regurg Peak Grad: 45.00mmHg TV Regurg Peak Anthony: 3.37m/sec Updated by Neil Krishnamurthy MD, [facility] on 12/20/2016 9:03:45 AM electronically signed on 12/20/2016 9:04:20 AM with status of Final Wall Motion Beck: 1=Normal, 2=Hypokinesis, 3=Akinesis, 4=Dyskinesis, 5=Aneurysmal, 6=Hyperkinetic, X=Not Visualized (Blank)=Missing
[2016-12-20] MEDS: Furosemide 40 MG/4 ML VIAL IVP SCH ×2 (10:15→22:00)
--- NOTE | 2016-12-20 11:19 | Cardiology Progress Note ---
Date of Encounter: 12/20/16 Time of Encounter: 11:19 Assessment and Plan (1) NSTEMI (non-ST elevated myocardial infarction) Current Visit: Yes Status: Acute Troponin 0.08, 0.14, 0.18. Also elevated in the setting of hypoxia, acute CHF, COPD exacerbation. New ischemic changes in the inferior lateral leads on EKG. Denies chest pain. Multiple risk factors including tobacco use, family history, HTN, HLD, DM type II, and RA. CXR - CHF. BNP 2430. On IV lasix. TTE- EF 20-25%, moderate pulmonary hypertension LHC is recommended once stable. Unfortunately she developed acute on chronic anemia. Hgb 7.5. Recommend blood transfusion to keep Hgb above 8.0. Recommend GI evaluation prior to LHC to r/o bleeding. Discussed with primary team. Asa, statin, and bb. Heparin gtt can be discontinued for anemia from ACS standpoint. Discussed with primary team. VQ scan ordered to rule out PE. D-dimer elevated. If negative heparin will be discontinued. No active bleeding seen. (2) COPD exacerbation Current Visit: Yes Status: Acute COPD exacerbation, hospitalist following. (3) Tobacco abuse Current Visit: Yes Status: Acute Smoking cessation. (4) Acute systolic CHF (congestive heart failure) Current Visit: Yes Status: Acute EF 20-25%. Acute systolic CHF. Agree with IV lasix. Low sodium diet and daily weights. LHC when able. Continue lisinopril and add toprol XL. D/c norvasc. (5) Anemia Current Visit: Yes Status: Acute GI eval recommended. Denies signs of bleeding. Qualifiers: Anemia type: unspecified type Qualified Code(s): D64.9 - Anemia, unspecified Discussion w patient/family: The assessment and plan as outlined above was discussed with the patient and/or family members who expressed understanding and agreement. All questions were answered. Thank you for involving us in the care of your patient. Please call with any questions. Subjective Principal diagnosis: NSTEMI, acute sytolic CHF Interval history: SOB improved. Denies chest pain. Denies signs of bleeding. Hgb noted to decrease. Reports remote history of anemia with extensive work-up in the past. Objective Vital Signs, Last 4 Hours Resp Pulse Ox 12/20/16 08:07 16 92 L General: Conversant, No Apparent Distress HEENT: Atraumatic, Normocephaly, Mucus Membranes Moist Neck: No JVD, Normal carotid pulses Cardiac: Reg Rate and Rhythm, Normal S1 and S2, No Murmur Lungs: Normal Breath Sounds, No Wheeze, Rales, Rhonchi Neuro: Alert and responsive, No focal deficits noted Abdomen: Soft, Non-Tender Skin: No rashes noted on visualized skin Musculoskeletal: No Chest Wall Tenderness Extremities: No Clubbing, No Cyanosis, No Edema, Normal Pulses Results 12/20/16 12:27 12/20/16 05:59 Lab Results 12/19/16 12/19/16 12/19/16 15:24 17:12 21:17 WBC Hgb Hct Plt Count APTT 33.9 Sodium Potassium Chloride Carbon Dioxide BUN Creatinine Glucose Calcium Magnesium Total Bilirubin AST ALT Alkaline Phosphatase Troponin I 0.19 H* 0.17 H* 12/19/16 12/20/16 12/20/16 22:47 05:59 05:59 WBC 6.5 Hgb 7.5 L Hct 24.4 L Plt Count 336 APTT 41.8 H Sodium 139 Potassium 4.5 Chloride 108 Carbon Dioxide 19 BUN 45 H Creatinine 2.03 H Glucose 159 H Calcium 9.3 Magnesium 1.5 L Total Bilirubin 0.3 AST 12 ALT 11 Alkaline Phosphatase 85 Troponin I 12/20/16 05:59 WBC Hgb Hct Plt Count APTT 35.5 Sodium Potassium Chloride Carbon Dioxide BUN Creatinine Glucose Calcium Magnesium Total Bilirubin AST ALT Alkaline Phosphatase Troponin I - Imaging and Cardiology Echo: report reviewed - EKG Interpretation EKG results cardiology: other Consult Discharge Plan - Plan Referrals: Mame Curtis, MULTIMEDIA ASSISTANT [Non-Partnered Physician] - 12/27/16 11:10 am (Please follow up as schedule...)
[2016-12-20 12:36] LABS: Basophils % 0.1 %; Hemoglobin 7.8 g/dL (11.5-15.4); Immature Granulocytes % 0.4 % (0-4); Immature Platelets 2.3 % (1.1-6.1); Lymphocytes # 1.5 K/mcL (0.6-4.6); Lymphocytes % 18.6 %; Mean Corpuscular HGB Conc 31.2 g/dL (31.6-35.5); Mean Corpuscular Hemoglobin 29.5 pg (28.0-33.3); Mean Corpuscular Volume 94.7 fL (83.0-100.0); Mean Platelet Volume 9.8 fL (9.4-12.4); Monocytes # 0.1 K/mcL (0.0-1.3); Monocytes % 1.7 %; Neutrophils # 6.2 K/mcL (1.6-8.9); Platelet Count 347 K/mcL (140-400); Red Blood Count 2.64 M/mcL (3.82-4.97); Red Cell Distribution Width 16.6 % (11.5-14.5); Segmented Neutrophils % 79.2 %
[2016-12-20] MEDS ORDERED: 0.9 % Sodium Chloride 250 ML ONE (14:19)
[2016-12-20] MEDS ORDERED: Furosemide 20 MG/2 ML VIAL IVP ONE (17:13)
[2016-12-20] MEDS: Heparin 25,000 UNIT/500 ML D5W 25,000 UNIT/500 ML MLS IVC SCH (17:23)
[2016-12-20] MEDS: Furosemide 20 MG/2 ML VIAL IVP ONE ×3 (17:23→17:25)
[2016-12-21] MEDS: Ipratropium/Albuterol Neb 3 ML IH SCH ×3 (04:15→11:16)
[2016-12-21] MEDS: MethylPREDNISolone 40 MG/ML VIAL IVP SCH (06:32)
[2016-12-21] MEDS: Levofloxacin 750 MG/150 ML 750 MG/150 ML BAG IVPB SCH (08:47)
[2016-12-21] MEDS: Furosemide 40 MG/4 ML VIAL IVP SCH (08:49)
[2016-12-21] MEDS: Lisinopril 20 MG TABLET PO SCH (08:49)
[2016-12-21] MEDS: Aspirin 81 MG TAB.CHEW PO SCH (08:49)
[2016-12-21] MEDS: Cholecalciferol (D-3) 1,000 UNIT TABLET PO SCH (08:50)
[2016-12-21] MEDS: cloNIDine HCl 0.1 MG TABLET PO SCH (08:50)
[2016-12-21] MEDS: Folic Acid 1 MG TABLET PO SCH (08:50)
[2016-12-21] MEDS: Heparin 25,000 UNIT/500 ML D5W 25,000 UNIT/500 ML MLS IVC SCH (08:51)
[2016-12-21] MEDS ORDERED: Metoprolol XL (24 HR) Succ 50 MG TAB.ER.24H PO SCH (09:00)
--- NOTE | 2016-12-21 09:02 | Cardiology Progress Note ---
Date of Encounter: 12/21/16 Time of Encounter: 09:01 Assessment and Plan (1) NSTEMI (non-ST elevated myocardial infarction) Current Visit: Yes Status: Acute Troponin 0.08, 0.14, 0.18. Also elevated in the setting of hypoxia, acute CHF, COPD exacerbation. NSTEMI vs. demand ischemia. New ischemic changes in the inferior lateral leads on EKG. Denies chest pain. Multiple risk factors including tobacco use, family history, HTN, HLD, DM type II, and RA. TTE- EF 20-25%, moderate pulmonary hypertension LHC was initially recommended once stable. Unfortunately she developed acute on chronic anemia. Hgb 7.5. Has received 2 units PRBC. Recommend GI evaluation. Will discuss with primary team. Continue ASA, Statin, BB, THOMAS-I. . Heparin gtt discontinued for anemia from ACS standpoint. VQ scan low probability for PE. Pt also with CKD stage 4. Discussed LHC with pt and she declines at this point, stating she feels there are too many risks in her current state, which is reasonable. Recommend work-up for her anemia and outpt follow-up. Can consider LHC as outpt once acute issues have resolved. Cardiac rehab not warranted at this time given medical management. Follow-up as outpt in 1-2 weeks. Cardiology signing off. Reconsult PRN. (2) Acute systolic CHF (congestive heart failure) Current Visit: Yes Status: Acute EF 20-25%. Acute systolic CHF. Agree with IV lasix 40mg BID. I/O negative -657mL yesterday, cumulative is still positive +540mL. Transition to PO Lasix maintenance dose at discharge. No significant fluid volume overload on exam. Recommend strict I/Os, low sodium and fluid restriction diet, daily weights. Continue Lisinopril and Toprol XL. Discussed LHC. Given her anemia and CKD, discussed medical management as well--R /B/A to both options discussed. Pt prefers medical management, which is reasonable at this time. Recommend outpt follow-up in 1-2 weeks as oupt. Cardiology signing off. Reconsult PRN. Will need to reassess EF as oupt. (3) Cardiomyopathy Current Visit: Yes Status: Acute As above. EF 20-25%, ischemic vs. nonischemic. Discussed LHC, but complicated by acute on chronic anemia--HGB as low as 7.5 requiring PRBC transfusion and pt also with Stage 4 CKD creatinine 2.03. Pt prefers medical management at this time. Continue THOMAS-I and BB. Re-evaluate as outpt to discuss LHC and repeat echo as outpt after 3 months of optimal medical therapy has been started and/or after LHC. Qualifiers: Cardiomyopathy type: unspecified Qualified Code(s): I42.9 - Cardiomyopathy , unspecified (4) Anemia Current Visit: Yes Status: Acute GI eval recommended. Denies signs of bleeding. HGB as low as 7.5, s/p 2 units PRBC. Stat CBC ordered. Qualifiers: Anemia type: unspecified type Qualified Code(s): D64.9 - Anemia, unspecified (5) CKD (chronic kidney disease), stage IV Current Visit: Yes Status: Acute Currently near baseline--Creatinine 2.03. (6) COPD exacerbation Current Visit: Yes Status: Acute COPD exacerbation, hospitalist following. (7) Tobacco abuse Current Visit: Yes Status: Acute Smoking cessation. Discussion w patient/family: The assessment and plan as outlined above was discussed with the patient and/or family members who expressed understanding and agreement. All questions were answered. Thank you for involving us in the care of your patient. Please call with any questions. I will discuss all the above with Dr. Carey and make changes as necessary. Subjective Principal diagnosis: NSTEMI, acute sytolic CHF Interval history: Pt denies chest pain or dyspnea, denies lower extremity edema. Objective Vital Signs, Last 4 Hours Temp Pulse Resp BP Pulse Ox 12/21/16 07:42 16 97 12/21/16 07:22 97.6 F 94 16 121/67 95 Vital Signs Temp Pulse Resp BP Pulse Ox 12/21/16 07:42 16 97 12/21/16 07:22 97.6 F 94 16 121/67 95 12/21/16 04:37 98.1 F 96 16 123/66 96 12/21/16 04:15 14 98 12/20/16 23:58 97.6 F 95 16 147/88 96 12/20/16 23:27 17 97 12/20/16 20:45 98.1 F 82 16 132/76 94 L 12/20/16 20:43 98.1 F 98 16 132/76 94 L 12/20/16 19:47 18 94 L 12/20/16 17:37 98.3 F 99 18 124/76 98 12/20/16 17:22 97.8 F 101 18 116/66 97 12/20/16 17:15 97.8 F 101 18 116/66 97 12/20/16 16:15 16 97 12/20/16 14:47 97.2 F L 95 16 110/69 94 L 12/20/16 14:32 97.6 F 86 16 122/76 95 12/20/16 12:15 97.8 F 98 18 123/66 95 Intake and Output 12/20/16 12/21/16 12/21/16 23:59 07:59 15:59 Intake Total 801 / 801 120 / 120 Output Total 800 / 800 Balance 120 / 120 Intake: Oral 150 / 150 120 / 120 Blood Product 651 / 651 Rbcs Leuko Poor As-1 375 / 375 Unit [id number] Rbcs Leuko Poor As-1 276 / 276 Unit [id number] Output: Urine 800 / 800 Other: Weight 48.1 kg Blood Glucose* 151 Patient Weight 12/21/16 23:59 Weight 48.1 kg General: Conversant, No Apparent Distress HEENT: Atraumatic, Normocephaly, Mucus Membranes Moist Neck: No JVD, Normal carotid pulses Cardiac: Reg Rate and Rhythm, Normal S1 and S2, No Murmur Lungs: Normal Breath Sounds, No Wheeze, Rales, Rhonchi Neuro: Alert and responsive, No focal deficits noted Abdomen: Soft, Non-Tender Skin: No rashes noted on visualized skin Musculoskeletal: No Chest Wall Tenderness Extremities: No Clubbing, No Cyanosis, No Edema, Normal Pulses Results 12/20/16 12:27 12/20/16 05:59 Lab Results 12/20/16 12:27 WBC 7.8 Hgb 7.8 L Hct 25.0 L Plt Count 347 Short CBC 12/20/16 Range/Units 12:27 WBC 7.8 (4.3-11.1) K/mcL Hgb 7.8 L (11.5-15.4) g/dL Hct 25.0 L (35.3-44.9) % Plt Count 347 (140-400) K/mcL Neutrophils # 6.2 (1.6-8.9) K/mcL Impressions Chest X-Ray 12/20/16 09:27 IMPRESSION: 1. There is mild unchanged prominence of the pulmonary vasculature. 2. Slight increase in the small right pleural effusion. 3. Right basilar atelectasis is seen, which may represent atelectasis versus airspace disease. D/ / Tan Botello MD / Tan Botello MD Interpreting Provider: Tan Botello MD Pulmonary Perfusion Imaging 12/20/16 11:20 IMPRESSION: Small subsegmental right lower lobe basal ventilation defect with a smaller associated perfusion defect. The exam is considered low probability for acute pulmonary emboli. D/ / 12/20/2016 12:07:15 Franck Dick MD / magalis Interpreting Provider: Frnack Dick MD Active Medications Albuterol/Ipratropium (Duoneb) 3 ml IH [id number] FORTUNATO PRN Reason: Protocol Stop: 06/20/17 08:31 Last Admin: 12/21/16 07:32 Dose: 3 ml Allopurinol (Zyloprim) 100 mg PO DAILY FORTUNATO Stop: 06/20/17 09:01 Last Admin: 12/20/16 08:39 Dose: 100 mg Aspirin (Aspirin) 81 mg PO DAILY FORTUNATO Stop: 06/20/17 09:16 Last Admin: 12/20/16 08:39 Dose: 81 mg Atorvastatin Calcium (Lipitor) 80 mg PO HS FORTUNATO Stop: 06/20/17 21:01 Last Admin: 12/20/16 22:01 Dose: 80 mg Clonidine HCl (Clonidine Hcl) 0.1 mg PO BID FORT[facility]ATO Stop: 06/20/17 09:01 Last Admin: 12/20/16 22:01 Dose: 0.1 mg Ferrous Sulfate (Ferrous Sulfate) 325 mg PO BIDWM FORTUNATO Stop: 06/20/17 09:01 Last Admin: 12/20/16 17:24 Dose: 325 mg Folic Acid (Folic Acid) 1 mg PO DAILY FORT[facility]ATO Stop: 06/20/17 09:01 Last Admin: 12/20/16 08:39 Dose: 1 mg Furosemide (Lasix) 40 mg IVP BID [facility] Stop: 06/21/17 09:31 Last Admin: 12/20/16 22:00 Dose: 40 mg Heparin Sodium (Porcine) (Heparin) 2,800 unit 60 unit/kg (2800 unit) IVP Q6HR PRN PRN Reason: SEE COMMENTS Stop: 06/20/17 09:12 Last Admin: 12/20/16 08:50 Dose: 2,800 unit Heparin Sodium (Porcine) (Heparin) 1,400 unit 30 unit/kg (1400 unit) IVP Q6H PRN PRN Reason: SEE COMMENTS Stop: 06/20/17 09:12 Levofloxacin/Dextrose (Levaquin 750mg/150 Ml) 750 mg in 150 mls @ 100 mls/hr IVPB Q48H [facility]TUNATO PRN Reason: Protocol Stop: 06/20/17 09:01 Last Admin: 12/19/16 10:14 Dose: 100 mls/hr Heparin Sodium/Dextrose (Heparin 25,000 Unit/500 Ml D5w) 25,000 unit in 500 mls @ 11.104 mls/hr IVC .Q24H FORTUNATO; 12 UNIT/KG/HR PRN Reason: Protocol Stop: 06/20/17 09:16 Last Admin: 12/20/16 17:23 Dose: Not Given Lisinopril (Zestril) 20 mg PO BID [facility] PRN Reason: Protocol Stop: 06/20/17 09:01 Last Admin: 12/20/16 22:01 Dose: 20 mg Methylprednisolone (Solu-Medrol) 40 mg IVP Q12HR [facility] Stop: 06/21/17 18:01 Last Admin: 12/21/16 06:32 Dose: 40 mg Metoprolol Succinate (Toprol Xl) 50 mg PO DAILY [facility] Stop: 06/22/17 09:01 Morphine Sulfate (Morphine Sulfate) 2 mg IVP Q4HR PRN PRN Reason: Severe Pain (7-10) Stop: 06/20/17 08:16 Naloxone HCl (Narcan) 0.4 mg IVP Q2MIN PRN PRN Reason: Opioid Reversal Stop: 06/20/17 08:16 Omeprazole (Prilosec) 20 mg PO DAILY@0630 [facility] PRN Reason: Protocol Stop: 06/21/17 06:31 Last Admin: 12/21/16 06:32 Dose: 20 mg Vitamin D (Vitamin D) 2,000 unit PO DAILY [facility] Stop: 06/20/17 09:01 Last Admin: 12/20/16 08:39 Dose: 2,000 unit - Imaging and Cardiology Chest Xray: report reviewed Echo: report reviewed - EKG Interpretation EKG results cardiology: other (24 hour tele AVG HR 96, SR, no significant pauses or arrhythmias) Consult Discharge Plan - Plan Referrals: Mame Curtis, [employer] [Non-Partnered Physician] - 12/27/16 11:10 am (Please follow up as schedule...)
[2016-12-21 09:11] LABS: Hematocrit 33.9 % (35.3-44.9); Mean Corpuscular HGB Conc 32.2 g/dL (31.6-35.5); Mean Corpuscular Hemoglobin 28.8 pg (28.0-33.3); Mean Corpuscular Volume 89.4 fL (83.0-100.0); Mean Platelet Volume 10.1 fL (9.4-12.4); Platelet Count 320 K/mcL (140-400); Red Blood Count 3.79 M/mcL (3.82-4.97); Red Cell Distribution Width 17.3 % (11.5-14.5)
[2016-12-21 09:12] LABS: Hemoglobin 10.9 g/dL (11.5-15.4)
[2016-12-21 09:23] LABS: Calcium 9.9 mg/dL (8.6-10.8); Potassium 4.1 mEq/L (3.5-4.5)
--- NOTE | 2016-12-21 11:46 | Discharge Summary ---
Date of Encounter: 12/21/16 Time of Encounter: 11:44 - Discharge Diagnosis (1) Acute hypoxemic respiratory failure Priority: Primary Status: Acute Comments: Acute hypoxic respiratory failure secondary to combination of acute pulmonary edema due to acute systolic CHF exacerbation in combination with acute COPD exacerbation from possible viral bronchitis (2) COPD exacerbation Priority: Secondary Status: Acute (3) Cardiomyopathy Priority: Primary Status: Acute Comments: New diagnosis of cardiomyopathy with an ejection fraction of 25-30% ischemic versus nonischemic The cardiac catheterization was not able to be performed due to the patient's anemia Qualifiers: Cardiomyopathy type: unspecified Qualified Code(s): I42.9 - Cardiomyopathy , unspecified (4) Elevated troponin Priority: Secondary Status: Acute Comments: Possibly secondary to demand ischemia due to CHF versus non-STEMI (5) NSTEMI (non-ST elevated myocardial infarction) Priority: Secondary Status: Acute (6) Pulmonary vascular congestion Priority: Primary Status: Acute (7) Tobacco abuse Priority: Secondary Status: Acute (8) CKD (chronic kidney disease), stage IV Priority: Secondary Status: Acute (9) Anemia Priority: Primary Status: Acute Comments: Chronic blood loss anemia, consider acute on chronic blood loss due to possible GI bleed, the patient has dark stools due to iron ingestion Has not had any bowel movement during this hospitalization despite being on a heparin drip, no evidence of bleeding Qualifiers: Anemia type: iron deficiency Qualified Code(s): D50.0 - Iron deficiency anemia secondary to blood loss (chronic) - Discharge Medications Prescriptions: Amlodipine [Norvasc] 5 mg PO DAILY #30 tablet Aspirin 81 mg PO DAILY #30 tab.chew Atorvastatin [Lipitor] 80 mg PO HS #30 tablet Furosemide [Lasix] 40 mg PO DAILY #30 tablet Lisinopril [Zestril] 20 mg PO DAILY #30 tablet Omeprazole [PriLOSEC] 40 mg PO BID #60 cap PredniSONE 10 mg PO DAILY 6 Days Home Medications: Adalimumab [Humira] 40 mg SQ Q2W 08/21/16 [History] Atenolol [Tenormin] 50 mg PO BID 08/21/16 [History] Cholecalciferol (D-3) [Vitamin D] 2,000 unit PO DAILY 08/21/16 [History] CloNIDine HCl [Kapvay] 0.1 mg PO BID 08/21/16 [History] [place]-3 Fatty Acids/Fish Oil [Fish Oil Dr 1,000 mg Softgel] 1 each PO DAILY 11/05 [History] Folic Acid 1 mg PO DAILY #90 tablet 08/22/16 [Rx] Ferrous Sulfate [Iron] 325 mg PO BID #60 tablet 10/02/16 [Rx] Allopurinol [Zyloprim 100 MG] 100 mg PO DAILY 12/19/16 [History] Metformin HCl [Metformin HCl ER] 500 mg PO DAILY 12/19/16 [History] Amlodipine [Norvasc] 5 mg PO DAILY #30 tablet 12/21/16 [Rx] Aspirin 81 mg PO DAILY #30 tab.chew 12/21/16 [Rx] Atorvastatin [Lipitor] 80 mg PO HS #30 tablet 12/21/16 [Rx] Furosemide [Lasix] 40 mg PO DAILY #30 tablet 12/21/16 [Rx] Lisinopril [Zestril] 20 mg PO DAILY #30 tablet 12/21/16 [Rx] Omeprazole [PriLOSEC] 40 mg PO BID #60 cap 12/21/16 [Rx] PredniSONE 10 mg PO DAILY 6 Days 12/21/16 [Rx] Allergies/Adverse Reactions: Allergies Penicillins Allergy (Verified 08/21/16 11:18) Rash Procedures/tests Complete & Pending: Procedures Performed prior 72 hours Category Date Time Status CL Cardiac Catheterization [CL] Routine Manager Terminal 12/20/16 00:01 Completed VQ Scan [NM pul vent and perfuse] [NM] Routine Exams 12/20/16 11:20 Completed ECG 12 lead ECG [ECG] Routine Y 12/19/16 08:24 Completed Date of admission: 12/19/16 08:57 Primary care physician: PCP NO - Patient Status Disposition: Home, Self-Care Condition: Good Overall status at discharge: patient is progressing back to baseline - Discharge Instructions Follow Up With: Mame Curtis [employer] [Non-Partnered Physician] - 12/27/16 11:10 am (Please follow up as schedule...) Additional Instructions: Follow with primary care physician within the next 7 days. Continue Lasix 40 mg daily may take an additional dose of feeling more short of breath. Taper prednisone. Continue omeprazole 40 mg twice a day. Continue clonidine at current dose. Decrease dose of lisinopril down to 20 mg once daily and amlodipine only 5 mg daily. Quit smoking. Discontinue triamterene and hydrochlorothiazide. Follow up with GI for possible endoscopy and colonoscopy and then with cardiology for possible cardiac catheterization as outpatient. - Diet and Activity Activity: increase activity as tolerated Diet: diabetic diet Hospital course: Ms. Guadalupe is a 66 year old female with a past medical history of hypertension , hyperlipidemia, diabetes type 2 not insulin-dependent, pneumothorax right is on Humira, tobacco use who presented with increasing SOB. C/O upper respiratory infection 2 weeks ago for which she took and antibiotic. She was feeling better until one day prior to admission. She admitted having chills and fatigue. C/o orthopnea. BNP 2430. Cardiology consulted for NSTEMI. SOB improved with nebulizers and solu-medrol. The patient was started on heparin drip for possible non-STEMI Denies previous history of CAD or CHF. . Chest x-ray showed pulmonary vascular congestion Troponin 0.08, 0.14, 0.18. Also elevated in the setting of hypoxia, acute CHF, COPD exacerbation. NSTEMI vs. demand ischemia. New ischemic changes in the inferior lateral leads on EKG. Multiple risk factors including tobacco use, family history, HTN, HLD, DM type II, and RA. TTE- EF 20-25%, moderate pulmonary hypertension as a new finding. LHC was initially recommended by cardiology once stable. Unfortunately she developed acute on chronic anemia. Hgb 7.5. Has received 2 units PRBC. Recommended GI evaluation. Received 2 units of red blood cells and her hemoglobin today is 10.9, Hemoccult has not been performed as she did not have any bowel movement. The patient was given the option to stay here to have an endoscopy and possibly colonoscopy prior to scheduling a cardiac catheterization. She prefers to be discharged home and follow as an outpatient. She says that she has been having dark stools because she is taking iron supplements. Has not had any bowel movement during her hospitalization despite being on heparin drip. A VQ scan was done showing low probability for pulmonary emboli. The patient was started on Solu-Medrol, and continued on Lasix. Her blood pressure has been stable and she was recommended to continue clonidine and decreased the doses of lisinopril, amlodipine and to discontinue triamterene and hydrochlorothiazide. She will follow up with GI as an outpatient and then cardiology. The patient was given the option to stay here until having the endoscopy and colonoscopy or been evaluated by GI but she prefers to be discharged at the moment. Understands the risks of continuing low dose baby aspirin Time spent discussing smoking cessation with patient: 3 to 10 minutes - Time Spent with Patient Total time spent providing and/or coordinating discharge services: Greater than 30 minutes (40 min) - Constitutional Vitals: Temp Pulse Resp BP Pulse Ox 97.6 F 94 16 121/67 94 L 12/21/16 07:22 12/21/16 07:22 12/21/16 11:16 12/21/16 07:22 12/21/16 11:16 General appearance: Present: A&O X 3, pleasant, no acute distress, answers questions appropriately - Head Head exam: Present: atraumatic, normocephalic - Eye Eye exam: Present: PERRL, conjuntiva pink, sclera anicteric Pupils: Present: PERRL - Neck Neck exam general surgery: Present: supple, trachea midline. Absent: lymphadenopathy - Respiratory Respiratory exam: Present: CTAB. Absent: accessory muscle use, rales, rhonchi, wheezes - Cardiovascular Cardiovascular exam: Present: RRR, +S1, +S2. Absent: diastolic murmur, gallop, rubs, systolic murmur - GI/Abdominal GI/Abdominal exam: Present: normal bowel sounds, soft, no peritoneal signs. Absent: distended, tenderness - Extremities Exam Extremities exam: Present: warm, radial pulses palpable and symetrical. Absent : calf tenderness, cyanotic, pedal edema - Neurological Exam Neurological exam: Present: CN II-XII intact, oriented X3, no focal deficits. Absent: pronater drift, facial droop, speech deficit - Skin Skin exam: Present: dry, intact
[2016-12-21 12:11] VITALS: BP 128/77
--- NOTE | 2016-12-21 15:14 | Electrocardiograph Report ---
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
== END 2016-12-21 13:50 | disposition home or self-care (01) | DRG 280 ==
LOC: EMEROO 05:51 → 2ANU 05:51
PROVIDERS: ADMIT Internal Medicine; ATTEND Internal Medicine